=== PATIENT | male | born 1975 | race Two or more races ===

== ENCOUNTER 2022-01-15 19:09 | Emergency (ER) | payer OTHER ==
[2022-01-15 19:27] VITALS: BP 165/99; PULSE 67; RESP 18; TEMP 97.9
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
== END 2022-01-15 21:36 | disposition home or self-care (01) ==
LOC: EC 19:09
DX: Z02.83 Encounter for blood-alcohol and blood-drug test (principal); F17.200 Nicotine dependence, unspecified, uncomplicated
CPT/HCPCS: 99281